=== PATIENT | male | born 1935 | race Asian ===

== ENCOUNTER → 2020-01-04 | Outpatient (CLI) | payer MEDICARE, MEDICAID ==
[~2020-01-04] MED LIST: REGADENOSON 0.4 MG/5 ML SYRINGE ONE
== END | disposition home or self-care (01) ==
LOC: CFH 08:08
PROVIDERS: ATTEND Internal Medicine Cardiovascular Disease
DX: I25.9 Chronic ischemic heart disease, unspecified (principal); I25.5 Ischemic cardiomyopathy; I21.19 ST elevation (STEMI) myocardial infarction involving other coronary artery of inferior wall; I10 Essential (primary) hypertension; R06.02 Shortness of breath; I42.9 Cardiomyopathy, unspecified
CPT/HCPCS: 78452; 93017; A9502; J2785

== ENCOUNTER → 2020-05-23 | Outpatient (CLI) | payer MEDICARE, MEDICAID ==
[~2020-05-23] MED LIST changes: +ASPI81TA45 PO; +LISI40TA9 PO; +LOSA50TA2 PO; +METO-93 PO; -REGADENOSON 0.4 MG/5 ML SYRINGE ONE; +ROSU20TA2 PO; +TICA90TA PO
== END | disposition home or self-care (01) ==
LOC: CFH 08:05
PROVIDERS: ATTEND Registered Nurse
DX: I08.8 Other rheumatic multiple valve diseases (principal); I25.5 Ischemic cardiomyopathy
CPT/HCPCS: 93306